=== PATIENT | female | born 1955 | race Caucasian/White ===

== ENCOUNTER → 2017-04-12 | Outpatient (CLI) | payer OTHER ==
[~2017-04-12] MED LIST: ASPIRIN EC81 M1 PO; CALCIUM 500 +1 EAC5 PO; NORCO 5-325 TA1 EACH PO
== END ==
LOC: ULTRA 08:19
DX: N20.0 Calculus of kidney (principal); K76.89 Other specified diseases of liver

== ENCOUNTER → 2017-09-11 | Outpatient (CLI) | payer OTHER | LOC: RAD 13:27 | DX: Z12.31 Encounter for screening mammogram for malignant neoplasm of breast (principal) ==

== ENCOUNTER → 2018-08-19 | Outpatient (CLI) | payer OTHER | LOC: RAD 01:08 | DX: Z12.31 Encounter for screening mammogram for malignant neoplasm of breast (principal) ==

== ENCOUNTER → 2018-10-30 | Outpatient (CLI) | payer OTHER | LOC: NUC 11:00 | DX: M85.89 Other specified disorders of bone density and structure, multiple sites (principal); Z78.0 Asymptomatic menopausal state ==

== ENCOUNTER → 2019-08-20 | Outpatient (CLI) | payer OTHER | LOC: RAD 14:00 | DX: Z12.31 Encounter for screening mammogram for malignant neoplasm of breast (principal) ==

== ENCOUNTER → 2020-08-19 | Outpatient (CLI) | payer OTHER | LOC: BC 14:45 | PROVIDERS: ATTEND Neuromusculoskeletal Medicine & OMM | DX: Z12.31 Encounter for screening mammogram for malignant neoplasm of breast (principal) ==

== ENCOUNTER → 2021-06-23 | Outpatient (CLI) | payer OTHER ==
[~2021-06-23] MED LIST changes: +ALLER-TEC D 5-1 EACH PO; +CELEXA 20 MG TA20 MG PO; +CO-ENZYME Q-1010 MG PO; +LIPITOR 10 MG10 M1 PO
== END ==
LOC: LAB 08:04
PROVIDERS: ATTEND Student in an Organized Health Care Education/Training Program
DX: Z20.822 Contact with and (suspected) exposure to COVID-19 (principal)

== ENCOUNTER → 2021-06-24 | Outpatient (CLI) | payer OTHER ==
[~2021-06-24] VITALS: Ht 180.3 cm; Wt 99.8 kg
--- NOTE | ~2021-06-24 | P ---
[facility] [place] [address] PROCEDURE REPORT Name: MELANIA JONES Room #: REG [facility] Tracie.#: [id number] Admission: 06/24/21 Attend Phys: Negrito Mckinnon Discharge: Date of : 59 Report #: [id number] THIS REPORT FOR: cc: Tarik Romeo,Negrito Toribio MD ~ cc: Tarik Romeo MD DATE OF SERVICE: 06/24/2021 PROCEDURE PERFORMED: Colonoscopy. HISTORY OF PRESENT ILLNESS: The patient is a 66-year-old female who presents today for routine screening colonoscopy. Denies any symptoms. No family history of colon cancer. Last colonoscopy was 11 years ago. DESCRIPTION OF PROCEDURE: The risks and benefits of the procedure were explained to the patient, those risks including but not limited to bleeding, perforation and the risk of sedation. She understood these risks and gave informed consent. Sedation was given using propofol per Anesthesia. Next, a digital rectal exam was initially performed, which was normal. Next, using a standard Olympus colonoscope, the scope was placed in the patient's anus and advanced under direct vision to the cecum. The overall prep was good. The cecum and ileocecal valve were normal in appearance. The ascending, transverse and descending colon were normal. Multiple diverticula were noted in the sigmoid colon. No evidence of inflammation, otherwise normal. The rectal mucosa was normal. On retroflexion, small internal hemorrhoid noted. The scope was then withdrawn and the procedure terminated. The patient tolerated the procedure well. IMPRESSION: 1. Sigmoid diverticulosis. 2. Small internal hemorrhoids. 3. Otherwise, normal colonoscopy. RECOMMENDATIONS: 1. High fiber diet. 2. Repeat colonoscopy in 10 years. Thank you for allowing me to participate in her care. By: [id number] Negrito Manley MD /nt
== END | disposition home or self-care (01) ==
LOC: GI
PROVIDERS: ATTEND Specialist
DX: Z12.11 Encounter for screening for malignant neoplasm of colon (principal); K57.30 Diverticulosis of large intestine without perforation or abscess without bleeding; K64.8 Other hemorrhoids; E78.5 Hyperlipidemia, unspecified; F32.9 Major depressive disorder, single episode, unspecified; Z98.890 Other specified postprocedural states; Z79.899 Other long term (current) drug therapy; Z85.828 Personal history of other malignant neoplasm of skin
CPT/HCPCS: 62110; 62900

== ENCOUNTER → 2021-08-16 | Outpatient (CLI) | payer OTHER | LOC: RAD 14:22 | PROVIDERS: ATTEND Obstetrics & Gynecology | DX: Z12.31 Encounter for screening mammogram for malignant neoplasm of breast (principal) ==